=== PATIENT | female | born 1985 | race Caucasian/White ===

== ENCOUNTER 2025-02-23 14:46 | Emergency (ER) | payer BC, SELFPAY ==
[2025-02-23 14:48] VITALS: BP 132/93
[2025-02-23 15:04] LABS: Hematocrit 33.5 % (37.0-47.0); Hemoglobin 10.3 g/dL (12.0-16.0); Mean Corp Hgb Conc. 30.7 g/dL (33.0-37.0); Mean Corpuscular Volume 62.5 fL (81.0-99.0); Nucleated Red Blood Cells % 0 %; Platelet Count 268 10^3/uL (130-400); Red Cell Dist. Width 16.7 % (11.5-14.5)
[2025-02-23 15:20] LABS: HCG, Serum Qualitative Screen Negative
[2025-02-23 15:46] LABS: ALT (SGPT) 12 U/L (0-35); AST (SGOT) 15 U/L (14-36); Albumin 4.6 g/dl (3.5-5.0); Alkaline Phosphatase 46 U/L (38-126); Blood Urea Nitrogen 10 mg/dl (7-17); Calcium 9.9 mg/dl (8.4-10.2); Carbon Dioxide 25 mmol/L (22-30); Chloride 108 mmol/L (98-107); Glucose 97 mg/dl (70-99); Lipase 59 U/L (23-300); Potassium 3.7 mmol/L (3.5-5.1); Sodium 142 mmol/L (135-145); Total Protein 7.5 g/dl (6.3-8.2); eGFR > 60.00
[2025-02-23 18:22] VITALS: BP 138/98
[2025-02-23 18:33] VITALS: BMI 24.5
--- NOTE | 2025-02-23 20:06 | ED.GENMED ---
History of Present Illness
General
Chief Complaint: Abdominal Pain
Source: patient
Exam Limitations: none
Time Seen by Provider: 02/23/25 19:17
Nursing documentation reviewed up to this point in time: agreed with
History of Present Illness
History of Present Illness:
Patient is a 39-year-old female who presents to the emergency department for evaluation of abdominal pain for the past 5 days. Patient states she noticed significant bloating last which was followed by generalized abdominal cramping.
Bloating has seemed to come and go however patient reports pain in her left lower abdomen which has seemed persistent. This pain is definitely exacerbated by eating and she has had very little to eat or drink over the past few days secondary to
pain.
In addition�patient reports multiple episodes of diarrhea. She denies any nausea or vomiting. No fever or chills. No dysuria or hematuria. She denies any chest pain or shortness of breath.
Patient denies any history of similar symptoms.
She has never had a colonoscopy.
Review of Systems
Review of Systems
Allergies reviewed?: Yes
All Other Systems: ROS reviewed and negative except as documented in HPI and ROS
Phy Exam
Physical Exam
Physical Exam:
Vitals: Mildly hypertensive, otherwise vital signs stable. Afebrile
General: Patient is well appearing, no acute distress. Nontoxic appearing
Skin: Warm and dry, no rashes or lesions
Head: Normocephalic, atraumatic
Eyes: Sclera nonicteric.
Throat: Protecting airway
Neck: Normal ROM, no cervical spine tenderness, no meningismus
Cardiac: Regular rate and rhythm, no murmurs.
Pulm: Normal respiratory effort, no wheezes, rales, rhonchi heard on exam
Abdomen: Abdomen soft. Mild tenderness in left mid/left lower abdomen. No rebound tenderness or guarding. No CVA tenderness.
Extremities: No evidence of cyanosis or edema
Neuro: AAOx3. Grossly intact.
Psychiatric: Normal affect.
Course
Orders/Labs/Results
Orders:
Orders
02/23/25 14:51
IV Insert/Care/Rem.- Treatment PRN
02/23/25 14:52
Test Result ONCE
02/23/25 14:56
Complete Blood Count/With Diff Urgent
Comprehensive Metabolic Panel Urgent
HCG, Serum Qualitative Screen Urgent
Comment: Notify provider if positive test present
Lipase Urgent
02/23/25 19:44
0.9% Sodium Chloride 1000 ml [Nss] 1,000 ml IV BOLUS
Iohexol [Omnipaque] See Protocol PO NOW STA
Mag Hydrox/Al Hydrox/Simeth [Maalox] 30 ml Phenobarb/Hyoscy/Atropine/Scop [] 10 ml Viscous Lidocaine 2% [Xylocaine Viscous Cup] 10 ml PO NOW
02/23/25 19:45
CT Abd/pel W Iv And Oral Contr Urgent
Comment:
Reason For Exam: LLQ pain, bloating
02/23/25 20:09
Phenobarb/Hyoscy/Atropine/Scop [] 10 ml .ROUTE .STK-MED ONE
02/23/25 20:10
Mag Hydrox/Al Hydrox/Simeth [Maalox] 30 ml .ROUTE .STK-MED ONE
Viscous Lidocaine 2% [Xylocaine Viscous Cup] 15 ml .ROUTE .STK-MED ONE
02/23/25 20:52
Urinalysis Reflex To Culture Urgent
Date Specimen was Collected: 02/23/25
Time Specimen was Collected: 20:15
Abnormal Lab Results
02/23/25
14:56
Hgb 10.3 L g/dL
(12.0-16.0)
Hct 33.5 L %
(37.0-47.0)
MCV 62.5 L fL
(81.0-99.0)
MCH 19.2 L pg
(27.0-31.0)
MCHC 30.7 L g/dL
(33.0-37.0)
RDW 16.7 H %
(11.5-14.5)
Chloride 108 H mmol/L
(98-107)
02/23/25 14:56
02/23/25 14:56
Vital Signs
Initial and Last Documented VS:
Initial Vital Signs
Temp Pulse Resp BP Pulse Ox
98.3 F 85 18 132/93 99
02/23/25 14:48 02/23/25 14:48 02/23/25 14:48 02/23/25 14:48 02/23/25 14:48
Last Documented Vital Signs
Temp Pulse Resp BP Pulse Ox
98.3 F 67 18 115/69 100
02/23/25 14:48 02/23/25 23:57 02/23/25 23:57 02/23/25 23:57 02/23/25 23:57
MDM/Problems Addressed
Differential Diagnosis Includes:
Not limited to: GERD, gastritis, diverticulitis, cystitis, constipation, bowel obstruction, etc.
MDM/Problems Addressed:
39-year-old female presenting with 5 days of abdominal bloating and left lower abdominal pain with episodes of diarrhea. No associated fever, urinary symptoms, vomiting. No history of similar symptoms. Vitals and physical exam as above. Patient
hemodynamically stable, afebrile. On exam does she is well-appearing, in no apparent distress. Abdomen soft with mild tenderness in left lower quadrant without rebound tenderness or guarding. No palpable masses. Differential broad. Will plan to
check basic labs, UA, CT scan abdomen/pelvis. Patient declines analgesia at this time. Will monitor and reassess.
Update: Labs reviewed. No clinically significant abnormalities. Mild anemia which is likely baseline given patient's history of beta thalassemia. UA has no evidence of infection. CT scan results revealed masslike abnormality in
descending/sigmoid colon representing either colitis or underlying neoplasm/malignancy. Also enlarged uterus noted
Results discussed with patient at length, including importance of very close follow-up with colorectal surgery for colonoscopy and [facility] for dedicated pelvic ultrasound/MRI for further imaging of enlarged uterus. Will treat patient with course of
antibiotics to treat possible underlying colitis. Ultimately she is well-appearing and stable for discharge home with very strict return precautions and close outpatient follow-up patient expressed verbal understanding and is comfortable with plan.
Chronic conditions affecting care:
N/A
Acute Exacerbation and/or Progression of Chronic Illness:
N/A
*Radiology
Radiology exam reviewed: radiology read reviewed
*Pulse Oximetry
SaO2: 100
Oxygen Mode of Delivery: Room air
Patient hypoxic: no
*EKG
Interpreted by ED Provider?: NA
*Wrapper Sheeter Interpretation
Rate: Wrapper Sheeter- N/A
*Critical Care Note
Total Time (30-74mins, 75-104mins- exclusive of procedures): Not Applicable
ED Attending Note
-
Portions of this chart may have been created with voice recognition software.� Occasional wrong word or��sound alike� substitutions may have occurred due to the inherent limitations of voice recognition software.
Discharge Plan
Departure
Patient Disposition: Home (Routine Discharge)
Date of Disposition: 02/23/25
Time of Disposition: 23:36
Patient with high blood pressure during this ER visit?: Yes
Condition: Good
Discharge Problem:
Abdominal pain
Instructions: Abdominal Pain, BLOOD PRESSURE
Prescriptions:
New
ciprofloxacin HCl 500 mg tablet
500 mg PO BID Qty: 14 0RF
metronidazole 500 mg tablet
500 mg PO TID Qty: 21 0RF
No Action
Curcumin
1 cap PO HSPRN PRN (Reason: stomach issues)
Laxative
1 tab PO DAILYPRN PRN (Reason: constipation)
Probiotic
2 cap PO TIDWMEAL
Patient Comments:
02/23/2025, [employer] Probiotic enhanced with Perfect Amino supplement.
multivitamin
1 tab PO DAILY
Patient Comments:
02/23/2025, [employer] multivitamin.
Referrals:
Thiago Leija MD [Active, ColoRectal] - Next open appointment
Carolina Martinez CRNP [Family Provider, General]
Activity Restrictions/Additional Instructions:
RETURN TO THE EMERGENCY DEPARTMENT WITH ANY FEVER, CHILLS, PERSISTENT/WORSENING ABDOMINAL PAIN, INTRACTABLE NAUSEA/VOMITING, BLOODY/DARK STOOL, WORSENING CURRENT SYMPTOMS, OR ANY OTHER CONCERNS
- Discussed�your lab work revealed mild anemia with a hemoglobin of 10.3. Otherwise your labs were normal. Your urine did not appear infected.
- We discussed your CT scan at length. There was an area in your descending/sigmoid colon with concern for either a focal area of colitis/inflammation or an underlying mass. This will require urgent follow-up with colorectal surgery for a
colonoscopy. 2 prescriptions have been sent to your pharmacy that you can take for the next week. Please avoid alcohol while taking metronidazole.
- In addition�your uterus was found to be mildly enlarged. Please follow this up with your [facility] for dedicated pelvic ultrasound/MRI.
- I would recommend a low fiber diet over the next few days. Stay well-hydrated. You can take Tylenol and/or Motrin as needed for pain.
Monitor your symptoms very closely and return to the emergency department with any acute worsening/new symptoms or any other concerns
Interventions
Interventions:
*Risk Screen - Suicide Last Done: 02/23/25 14:48
*General Assessment Last Done: 02/23/25 18:31
*Neglect/Abuse Screening Last Done: 02/23/25 14:48
*ED- Fall Risk Assessment Last Done: 02/23/25 18:31
*ED COVID-19 Vaccine History Last Done: 02/23/25 18:31
*Nursing Disposition Last Done: 02/23/25 23:57
UD-Dyegqh-Lrmptfodlb Assessment Last Done: 02/23/25 18:31
Discharge Date and Time
Discharge Date/Time: 02/23/25 23:57
Print Language: CUBAN
[2025-02-23] MEDS: NSS 1000 IV (20:19)
[2025-02-23] MEDS: MAALOX 50 PO (20:20)
[2025-02-23] MEDS: OMNIPAQUE 50 ML PO (20:20)
[2025-02-23 20:26] VITALS: BP 118/72
[2025-02-23 21:11] LABS: Urine Character Clear (Clear)
[2025-02-23 22:19] VITALS: BP 115/69
[2025-02-23 23:57] VITALS: BP 115/69
== END 2025-02-23 23:57 | disposition home or self-care (01) ==
LOC: EMR 14:46
PROVIDERS: Emergency Medicine; Physician Assistant; EMERGENCY PHYSICIAN Emergency Medicine; FAMILY PHYSICIAN Nurse Practitioner Adult Health
DX: R10.84 Generalized abdominal pain (principal); R14.0 Abdominal distension (gaseous); R19.7 Diarrhea, unspecified; R03.0 Elevated blood-pressure reading, without diagnosis of hypertension; D56.1 Beta thalassemia; Z88.0 Allergy status to penicillin
CPT/HCPCS: 99284; 96360; 74177; 80053; 81003; 83690; 84703; 85025; Q9967